=== PATIENT | male | born 1975 | race Hispanic/Latino ===

== ENCOUNTER 2017-06-25 09:21 | Emergency (ER) | payer SELFPAY ==
[2017-06-25] MEDS ORDERED: Ketorolac Tromethamine 30 MG/ML VIAL ONE (10:06)
--- NOTE | 2017-06-25 10:15 | RAD ---
RIGHT RIBS THREE VIEWS: History: 42-year-old male with right rib pain and right flank pain. Difficulty urinating. FINDINGS: No evidence for acute rib fracture. No pneumothorax or pleural effusion. There is a stable focal area of faint increased density involving the anterior right fourth rib, stable. IMPRESSION: No rib fracture, pleural effusion, pneumothorax or other acute process. POS: [facility]
== END 2017-06-25 10:38 | disposition home or self-care (01) ==
LOC: ERS 09:21
DX: R07.81 Pleurodynia (principal); E11.9 Type 2 diabetes mellitus without complications; Z79.84 Long term (current) use of oral hypoglycemic drugs
CPT/HCPCS: 96372; J1885

== ENCOUNTER 2017-06-27 08:19 | Emergency (ER) | payer SELFPAY ==
[2017-06-27 08:45] LABS: Bilirubin Negative (Negative); Blood, Urine Negative (Negative); Glucose, Urine (Dipstick) >=1000 mg/dL (Negative); Ketone, Urine Negative (Negative); Nitrite Negative (Negative); Protein, Urine (Dipstick) Trace mg/dL (Neg-Trace)
[2017-06-27] MEDS ORDERED: Cyclobenzaprine 10 MG TAB ONE (09:14)
[2017-06-27] MEDS ORDERED: Ketorolac Tromethamine 60 MG/2 ML VIAL ONE (09:14)
== END 2017-06-27 10:52 | disposition home or self-care (01) ==
LOC: ERS 08:19
DX: S29.011A Strain of muscle and tendon of front wall of thorax, initial encounter (principal); E11.9 Type 2 diabetes mellitus without complications; Z79.84 Long term (current) use of oral hypoglycemic drugs; Z79.899 Other long term (current) drug therapy; X50.3XXA Overexertion from repetitive movements, initial encounter; Y92.69 Other specified industrial and construction area as the place of occurrence of the external cause; Y99.0 Civilian activity done for income or pay
CPT/HCPCS: 36416; 81003; 87086; 96372; J1885

== ENCOUNTER 2017-06-29 14:20 | Emergency (ER) | payer SELFPAY ==
[~2017-06-29 14:20] MED LIST: ISOVUE-370 76%-LOCM 1 ML ONE
[2017-06-29 15:39] LABS: #Eosinphils 0.1 thou/uL (0.0-0.7); #Lymphocytes 1.5 thou/uL (1.20-3.40); #Monocytes 0.3 thou/uL (0.11-0.59); #Neutrophils 4.2 thou/uL (1.40-6.50); %Basophils 0.6 % (0.0-1.0); %Eosinophils 2.3 % (0.0-10.0); %Lymphocytes 23.7 % (21.0-51.0); %Monocytes 5.3 % (0.0-10.0); Hematocrit 48.7 % (42.0-52.0); Mean Platelet Volume 9.5 fL (7.4-10.4); Red Blood Cell (RBC) Count 5.24 mill/uL (4.70-6.10); White Blood Cell (WBC) Count 6.2 thou/uL (4.8-10.8)
[2017-06-29 16:02] LABS: ALT (SGPT) 33 U/L (8-55); AST (SGOT) 17 U/L (5-34); Alkaline Phosphatase 81 U/L (40-150); Anion Gap 12 mmol/L (10-20); BUN (Urea Nitrogen) 15 mg/dL (8.9-20.6); Bilirubin, Total 0.8 mg/dL (0.2-1.2); Calc. Creatinine Clearance 0 mL/min (70-130); Calcium 9.6 mg/dL (7.8-10.44); Carbon Dioxide 27 mmol/L (22-29); Chloride 101 mmol/L (98-107); Estimated GFR-MDRD Greater than 90; Globulin 3.7 g/dL (2.4-3.5); Lipase 16 U/L (8-78)
[2017-06-29 16:06] LABS: Bilirubin Negative (Negative); Blood, Urine Negative (Negative); Glucose, Urine (Dipstick) >=1000 mg/dL (Negative); Ketone, Urine Negative (Negative); Nitrite Negative (Negative); Protein, Urine (Dipstick) Negative (Neg-Trace)
[2017-06-29] MEDS ORDERED: diphenhydrAMINE 50 MG/ML VIAL ONE (17:31)
[2017-06-29] MEDS ORDERED: Metoclopramide HCl 10 MG/2 ML VIAL ONE (17:31)
[2017-06-29 17:32] LABS: Lactic Acid - Sepsis 3.1 mmol/L (0.5-2.2)
[2017-06-29 17:39] LABS: Troponin I Less than 0.010 ng/mL (< 0.028)
--- NOTE | 2017-06-29 17:53 | RAD ---
PORTABLE UPRIGHT FRONTAL CHEST RADIOGRAPH 06/29/17 COMPARISON: 02/06/17. HISTORY: Right sided flank pain. FINDINGS: No pneumothorax, pleural fluid, focal consolidation, or alveolar edema. Heart and mediastinal contour s are stable. IMPRESSION: No acute findings. POS: [facility]
--- NOTE | 2017-06-29 18:28 | CT ---
CTA CHEST WITH 3D VOLUME RENDERING 06/29/17 INDICATION: Recent onset pain. FINDINGS: There is no evidence of a significant filling defect of the pulmonary arterial system. Mild patchy op acities of the lungs are present including areas of focal ground glass opacity. This could relate to areas of atelectasis although the possibility of an atypical infection is not excluded. No effusion o r pneumothorax. The thoracic aorta is nonaneurysmal. No pathologic thoracic adenopathy. There is osse ous degenerative change. IMPRESSION: 1. No evidence of pulmonary embolus. 2. Scattered ground glass opacity, some of which are nodular in morphology and may therefore relate t o atypical infection. Given the component of nodularity a followup CT thorax is warranted to exclude the possibility of underlying neoplastic nodularity. Code T
--- NOTE | 2017-06-29 18:30 | CT ---
ABDOMEN AND PELVIS CT WITH CONTRAST 06/29/17 INDICATION; Upper abdominal pain. COMPARISON: 12/14/15. FINDINGS: Evidence of prior cholecystectomy. There is no acute pathology of the solid abdominal organs. The bow el is not reliably assessed without the presence of enteric contrast. There is no free air or ascites of significance. The abdominal aorta is normal in caliber. No abdominal adenopathy. There is scatter ed degenerative change of osseous structures. IMPRESSION: No definitive acute intra-abdominal process. Additional details are described above. POS: [facility]
--- NOTE | 2017-07-02 12:59 | EKG ---
Test Reason : Blood Pressure : / mmHG Vent. Rate : 081 BPM Atrial Rate : 081 BPM P-R Int : 130 ms QRS Dur : 078 ms QT Int : 348 ms P-R-T Axes : 009 -18 000 degrees QTc Int : 404 ms Normal sinus rhythm Minimal voltage criteria for LVH, may be normal variant Borderline ECG Confirmed by RANJITH PEREZ ([id number]), associate editor PAUL CHOUDHARY ([id number]) on 07/02/2017 12:58:40 PM Referred By: Confirmed By:RANJITH PEREZ
== END 2017-06-29 21:00 | disposition home or self-care (01) ==
LOC: ERS 14:20
DX: J18.9 Pneumonia, unspecified organism (principal); E11.9 Type 2 diabetes mellitus without complications
CPT/HCPCS: 36415; 71010; 71275; 74177; 80053; 81003; 82553; 83605; 83690; 83735; 84484; 85025; 85379; 87086; 93005; 96361; 96374; 96375; J1200; J2765

== ENCOUNTER 2017-12-24 18:07 | Emergency (ER) | payer SELFPAY | END 2017-12-24 18:56 | disposition home or self-care (01) | LOC: ERS 18:07 | DX: H66.92 Otitis media, unspecified, left ear (principal); E11.9 Type 2 diabetes mellitus without complications; Z79.84 Long term (current) use of oral hypoglycemic drugs | CPT/HCPCS: 99282 ==

== ENCOUNTER 2018-02-17 18:20 | Emergency (ER) | payer SELFPAY | END 2018-02-17 19:08 | disposition home or self-care (01) | LOC: SCSER 18:20 | DX: S50.862A Insect bite (nonvenomous) of left forearm, initial encounter (principal); E11.9 Type 2 diabetes mellitus without complications; Z79.84 Long term (current) use of oral hypoglycemic drugs; W57.XXXA Bitten or stung by nonvenomous insect and other nonvenomous arthropods, initial encounter | CPT/HCPCS: 99282 ==

== ENCOUNTER 2018-02-23 17:13 | Inpatient (IN) | payer SELFPAY ==
[2018-02-23] MEDS ORDERED: Sodium Chloride 0.9% 100 ML ONE (18:07)
[2018-02-23] MEDS ORDERED: Cefepime 2 GM VIAL ONE (18:07)
[2018-02-23 18:31] LABS: ALT (SGPT) 34 U/L (8-55); AST (SGOT) 20 U/L (5-34); Albumin 4.3 g/dL (3.5-5.0); Alkaline Phosphatase 103 U/L (40-150); Anion Gap 16 mmol/L (10-20); BUN (Urea Nitrogen) 11 mg/dL (8.9-20.6); Bilirubin, Total 0.6 mg/dL (0.2-1.2); Calc. Creatinine Clearance 0 mL/min (70-130); Carbon Dioxide 19 mmol/L (22-29); Chloride 104 mmol/L (98-107); Estimated GFR-MDRD Greater than 90; Globulin 3.3 g/dL (2.4-3.5); Glucose 404 mg/dL (70-105); Potassium 3.9 mmol/L (3.5-5.1); Protein, Total 7.6 g/dL (6.0-8.3); Sodium 135 mmol/L (136-145)
[2018-02-23 18:33] LABS: #Eosinphils 0.1 thou/uL (0.0-0.7); #Lymphocytes 1.8 thou/uL (1.20-3.40); #Monocytes 0.5 thou/uL (0.11-0.59); #Neutrophils 4.9 thou/uL (1.40-6.50); %Basophils 0.4 % (0.0-1.0); %Monocytes 6.9 % (0.0-10.0); %Neutrophils 66.6 % (42.0-75.0); Hemoglobin 14.2 g/dL (14.0-18.0); Mean Corpuscular HGB CONC 34.8 g/dL (32.0-36.0); Mean Corpuscular Volume 92.2 fL (78.0-98.0); Mean Platelet Volume 9.7 fL (7.4-10.4); Platelet Count 143 thou/uL (130-400); RBC Distribution Width 11.1 % (11.5-14.5); Red Blood Cell (RBC) Count 4.42 mill/uL (4.70-6.10); White Blood Cell (WBC) Count 7.3 thou/uL (4.8-10.8)
[2018-02-23] MEDS ORDERED: Ondansetron HCl/PF 4 MG/2 ML Vial ONE (18:43)
--- NOTE | 2018-02-23 19:54 | CT ---
CT LEFT UPPER EXTREMITY WITH CONTRAST: 02/23/2018 HISTORY: A 42-year-old male with left upper extremity cellulitis, status post I&D of open, draining abscess of the forearm. TECHNIQUE: IV contrast injection of Isovue. Single phase scan performed through the entire left upper extremity, from the shoulder to the digits. Coronal and sagittal reconstructions. FINDINGS: At the ulnar side of the dorsum of the proximal-mid forearm, there is a cutaneous and subcutaneous fo sandip, approximately 2.5 x 2 x 1 cm mass, which has moderately thick, moderately high density (probably enhancing) shah, and is filled with numerous tiny pockets of gas interspersed with intermediate den sity material. This presumably represents packing material within the cutaneous and subcutaneous abs cess cavity It indents the dorsal surface of the extensor muscles of the forearm. There is edema throughout the superficial soft tissues of the forearm, wrist, and elbow, extending a short distance proximally into the distal arm. There is no periosteal elevation or permeative lesion involving any of the bones. IMPRESSION: 1. Cutaneous and subcutaneous mass at the dorsum of the forearm with the appearance described above. This presumably represents packing material within the abscess cavity. 2. Edema throughout the wrist, entire forearm, and distal arm proximal to the elbow. 3. No osseous abnormality. POS: [facility]
[2018-02-23] MEDS ORDERED: Dextrose 5% in Water 1,000 ML IV PRN (21:28)
[2018-02-23] MEDS ORDERED: Dextrose 50% Abboject 50 ML SYRINGE SLOW IVP PRN (21:28)
[2018-02-23 22:18] LABS: Lactic Acid 1.1 mmol/L (0.5-2.2)
[2018-02-24] MEDS: Acetaminophen 325 MG TAB PO PRN ×3 (00:10→17:04)
--- NOTE | 2018-02-24 02:42 | HP ---
CODE STATUS: FULL CODE. CHIEF COMPLAINT: Left-forearm abscess. HISTORY OF PRESENT ILLNESS: This is a 42-year-old male patient with past medical history of diabetes came to the hospital after having worsening left forearm cellulitis with wound and abscess, patient had tried Bactrim and some other p.o. antibiotics for the past week that has not been working, the sy mptoms are severe. Patient has associated pain, redness, decreased range of motion due to pain and s welling. Symptoms are severe. REVIEW OF SYSTEMS: Constitutional: Patient reported fever, chills, generalized weakness. Respirato ry: No cough, sputum production, shortness of breath. Cardiovascular: No chest pain, palpitations, shortness of breath. Gastrointestinal: No nausea, no vomiting, diarrhea, or abdominal pain. UTILITY TECH: No dizziness, headache, or feeling lightheaded. Genitourinary: No burning on urination. Extremiti es: Left upper arm swelling, redness, open wound with drainage that is purulent. All other systems were reviewed and negative except for finding mentioned above. PAST MEDICAL HISTORY: Patient has a history of diabetes. PAST SURGICAL HISTORY: Cholecystectomy, cyst removed from testicle. PSYCHIATRIC HISTORY: No previous psych history. SOCIAL HISTORY: No smoking history. Patient drinks socially rarely. ALLERGIES: No allergies to PENICILLIN. REPORTED MEDICATIONS: Metformin and Keflex. FAMILY HISTORY: Reviewed and noncontributory. PHYSICAL EXAMINATION: VITAL SIGNS: Heart rate 89, respiratory rate was 17, temperature 98.5, pain 7/10, oxygen saturation 94 on room air. GENERAL APPEARANCE: Patient is alert, oriented in not in any acute distress. HEENT: Eye normal conjunctivae. Moist oral mucosa. Anicteric. NECK: No JVD. RESPIRATORY: Bilateral air entry. No rales, no wheezing. Symmetric expansion. CARDIOVASCULAR: Normal rate, regular rhythm. No murmurs, no gallop. No edema. ABDOMEN: Soft. Normal bowel sounds. MUSCULOSKELETAL: Baseline range of motion and strength except for the left forearm. Patient has swe lling, redness, open wound with drainage, decreased range of motion. SKIN: Warm and intact. No pallor, no rash except for the findings mentioned above. NEURO: Baseline sensory. No evidence of any new focal weakness. Baseline speech. Cranial nerve se ems to be intact. PSYCHIATRIC: Patient is in good mood. No anxiety, oriented, normal judgment. EXTREMITIES: Upper extremity, CT was done. The patient has cutaneous and subcutaneous mass at the d orsum of the forearm with appearance as described above, likely packing material within the abscess c avity. Edema throughout the wrist and entire forearm, and distal and proximal to the elbow. No osse ous abnormalities. LABORATORY DATA: Reviewed. White count 7.3, hemoglobin 14.2, platelet count 143. Sodium 135, potas sium 3.9, chloride 104, carbon dioxide 19, anion gap 16, BUN 11, creatinine 0.8. GFR is normal. Glu cose 404 . Lactic acid 2.4 again down to 1.1. LFTs are normal. ASSESSMENT AND PLAN: The patient was placed in the hospital with following medical problems. 1. Left upper forearm abscess and cellulitis, we will treat the patient with broad-spectrum antibiot ics. Patient has allergic to PENICILLIN. We will follow cultures accordingly. There is no bony inv olvement as per x-ray. If not improving, might consider calling Orthopedics will assist with this ca se. 2. Uncontrolled diabetes. We will place the patient on sliding scale for edema control, no current medication. 3. Mild lactic acidosis. Lactic acid 2.4 again down to 1.1. This is likely secondary to underlying infection. 4. Hyponatremia. Sodium 135. This is minimal, no need for any further intervention. 5. Deep venous thrombosis prophylaxis.
[2018-02-24] MEDS: traMADol HCl 50 MG TAB PO PRN ×2 (02:56→08:07)
[2018-02-24 04:42] LABS: #Basophils 0.1 thou/uL (0.0-0.2); #Eosinphils 0.2 thou/uL (0.0-0.7); #Lymphocytes 1.6 thou/uL (1.20-3.40); #Monocytes 0.5 thou/uL (0.11-0.59); %Basophils 0.8 % (0.0-1.0); %Eosinophils 2.7 % (0.0-10.0); %Lymphocytes 21.5 % (21.0-51.0); %Monocytes 7.1 % (0.0-10.0); Hemoglobin 14.2 g/dL (14.0-18.0); Mean Corpuscular HGB CONC 36.2 g/dL (32.0-36.0); Mean Corpuscular Hemoglobin 33.4 pg (27.0-31.0); Mean Corpuscular Volume 92.3 fL (78.0-98.0); Mean Platelet Volume 9.5 fL (7.4-10.4); Platelet Count 139 thou/uL (130-400); RBC Distribution Width 11.1 % (11.5-14.5); Red Blood Cell (RBC) Count 4.25 mill/uL (4.70-6.10); White Blood Cell (WBC) Count 7.3 thou/uL (4.8-10.8)
[2018-02-24 05:06] LABS: Anion Gap 13 mmol/L (10-20); BUN (Urea Nitrogen) 10 mg/dL (8.9-20.6); Calc. Creatinine Clearance 136 mL/min (70-130); Calcium 8.8 mg/dL (7.8-10.44); Carbon Dioxide 22 mmol/L (22-29); Chloride 105 mmol/L (98-107); Estimated GFR-MDRD Greater than 90; Glucose 258 mg/dL (70-105); Potassium 3.8 mmol/L (3.5-5.1); Sodium 136 mmol/L (136-145)
[2018-02-24] MEDS: Cefepime 1 GM in Sodium Chloride 0.9% 100 ML IVPB SCH ×2 (06:17→17:13)
[2018-02-24] MEDS: Insulin Regular 300 UNITS/3 ML VIAL SC PRN (06:17)
[2018-02-24] MEDS ORDERED: Senokot 8.6 MG TAB PO PRN (07:44)
[2018-02-24] MEDS ORDERED: Eucerin (Mineral Oil/Petrolatum,White) 30 gm Jar TOP PRN (07:44)
[2018-02-24] MEDS ORDERED: Loperamide HCl 2 MG CAP PO PRN (07:44)
[2018-02-24] MEDS ORDERED: Loratadine 10 MG TAB PO PRN (07:44)
[2018-02-24] MEDS ORDERED: Mag-Al 1200 mg/1200 mg/30 ML UDCUP PO PRN (07:44)
[2018-02-24] MEDS ORDERED: Diabetic Tussin 200 MG/10 ML UDCUP PO PRN (07:44)
[2018-02-24] MEDS ORDERED: Ondansetron ODT 4 MG TAB PO PRN (07:44)
[2018-02-24] MEDS ORDERED: Sodium Chloride 0.65% Nasal 44 ML BOT EA NARE PRN (07:44)
[2018-02-24] MEDS ORDERED: Chloraseptic Spray 180 ml Bottle PO PRN (07:44)
[2018-02-24] MEDS ORDERED: hydrALAZINE 20 MG/ML VIAL SLOW IVP PRN (07:44)
[2018-02-24] MEDS ORDERED: Artificial Tear Sol 15 ML BOT EA EYE PRN (07:44)
[2018-02-24] MEDS ORDERED: Milk Of Magnesia 30 ML UDCUP PO PRN (07:44)
[2018-02-24] MEDS ORDERED: Zolpidem Tartrate 5 MG TAB PO PRN (07:44)
[2018-02-24] MEDS ORDERED: Famotidine 20 MG TAB PO PRN (07:44)
[2018-02-24] MEDS: Vancomycin HCl 1 GM in Premix Bag 1 BAG IVPB SCH ×2 (08:03→19:39)
[2018-02-24] MEDS: Enoxaparin Sodium 40 MG/0.4 ML SYRINGE SC SCH (08:09)
[2018-02-24] MEDS: metFORMIN 500 MG TAB PO SCH ×2 (08:52→19:43)
[2018-02-24] MEDS: HYDROcodone/Acetaminophen 5/325 mg Tablet PO PRN (08:53)
[2018-02-24] MEDS: Saccharomyces boulardii 250 MG CAP PO SCH (08:55)
[2018-02-24] MEDS: Morphine 4 MG/ML VIAL SLOW IVP PRN ×2 (11:30→15:17)
--- NOTE | 2018-02-24 12:53 | PDOC.PN ---
- Subjective Encounter Start Date: 02/24/18 Encounter Start Time: 10:00 -: old records requested/rev Patient seen and examined. No new complaints. No overnight events pt has pain in left UE and swelling, no fever - Objective Resuscitation Status: Resuscitation Status FULL:Full Resuscitation MAR Reviewed: Yes Vital Signs & Weight: Vital Signs (12 hours) Temp Pulse Resp BP Pulse Ox 02/24/18 11:39 97.9 F 75 18 121/82 97 02/24/18 08:00 97.6 F 75 18 02/24/18 07:57 97.6 F 75 18 131/85 96 02/24/18 04:04 98.0 F 75 18 121/81 97 Result Diagrams: 02/24/18 04:10 02/24/18 04:10 Additional Labs: Accuchecks 02/24/18 02/23/18 04:08 22:14 POC Glucose 257 H 268 H Radiology Reviewed by me: Yes Phys Exam - Physical Examination Constitutional: NAD HEENT: PERRLA, moist MMs, sclera anicteric Neck: no JVD, supple Respiratory: no wheezing, no rales, no rhonchi Cardiovascular: RRR, no significant murmur, no rub Gastrointestinal: soft, non-tender, no distention, positive bowel sounds Musculoskeletal: no edema, pulses present Neurological: non-focal, normal sensation, moves all 4 limbs Psychiatric: normal affect, A&O x 3 Skin: no rash, normal turgor Dx/Plan (1) Cellulitis of left upper extremity Code(s): L03.114 - CELLULITIS OF LEFT UPPER LIMB Status: Acute (2) Failure of outpatient treatment Code(s): Z78.9 - OTHER SPECIFIED HEALTH STATUS Status: Acute (3) Hyperglycemia due to type 2 diabetes mellitus Code(s): E11.65 - TYPE 2 DIABETES MELLITUS WITH HYPERGLYCEMIA Status: Acute (4) Lactic acidosis Code(s): E87.2 - ACIDOSIS Status: Acute (5) Sepsis Code(s): A41.9 - SEPSIS, UNSPECIFIED ORGANISM Status: Acute (6) Obesity (BMI 30.0-34.9) Code(s): E66.9 - OBESITY, UNSPECIFIED Status: Chronic - Plan cont current plan of care, plan discussed w/ family, continue antibiotics * continue cefepime and vancomycin for now * follow on culture to determine final antibiotics, will change tomorrow * wound care * add morphin for pain control * repeat labs and check HbA1c tomorrow * discussed with bedside * medication reviewed as below * symptomatic treatment. Review of Systems - Review of Systems Constitutional: negative: fever, chills, sweats, weakness, malaise, other Eyes: negative: Pain, Vision Change, Conjunctivae Inflammation, Eyelid Inflammation, Redness, Other ENT: negative: Ear Pain, Ear Discharge, Nose Pain, Nose Discharge, Nose Congestion, Mouth Pain, Mouth Swelling, Throat Pain, Throat Swelling, Other Respiratory: negative: Cough, Dry, Shortness of Breath, Hemoptysis, SOB with Excertion, Pleuritic Pain, Sputum, Wheezing Cardiovascular: negative: chest pain, palpitations, orthopnea, paroxysmal nocturnal dyspnea, edema, light headedness, other Gastrointestinal: negative: Nausea, Vomiting, Abdominal Pain, Diarrhea, Constipation, Melena, Hematochezia, Other Genitourinary: negative: Dysuria, Frequency, Incontinence, Hematuria, Retention , Other Musculoskeletal: Arm Pain. negative: Neck Pain, Shoulder Pain, Back Pain, Hand Pain, Leg Pain, Foot Pain, Other - Medications/Allergies Allergies/Adverse Reactions: Allergies Allergy/AdvReac Type Severity Reaction Status Date / Time Penicillins Allergy Verified 12/14/15 23:30 Medications: Current Medications Acetaminophen (Tylenol) 650 mg PO Q4H PRN PRN Reason: Headache/Fever or Pain Last Admin: 02/24/18 06:24 Dose: 650 mg Hydrocodone Bitart/Acetaminophen ([place] 5/325) 1 tab PO Q4H PRN PRN Reason: Moderate Pain (4-6) Last Admin: 02/24/18 08:53 Dose: 1 tab Al Hydroxide/Mg Hydroxide (Maalox) 15 ml PO Q4H PRN PRN Reason: Heartburn or Indigestion Artificial Tears (Tears Renewed 15ml Bottle) 0 drop EA EYE PRN PRN PRN Reason: Dry Eyes Dextrose/Water (Dextrose 50%) 25 gm SLOW IVP PRN PRN PRN Reason: Hypoglycemia Enoxaparin Sodium (Lovenox) 40 mg SC 0900 IRVIN Last Admin: 02/24/18 08:09 Dose: 40 mg Famotidine (Pepcid) 20 mg PO BIDPRN PRN PRN Reason: Heartburn or Indigestion Glucagon (Glucagon) 1 mg IM PRN PRN PRN Reason: Hypoglycemia Guaifenesin (Robitussin Sf) 200 mg PO Q4H PRN PRN Reason: Cough Hydralazine HCl (Apresoline) 10 mg SLOW IVP Q4H PRN PRN Reason: Systolic BP > 180 Dextrose/Water (D5w) 1,000 mls @ 0 mls/hr IV .Q0M PRN; As Directed PRN Reason: Hypoglycemia Cefepime HCl 1 gm/ Sodium (Chloride) 100 mls @ 200 mls/hr IVPB 0600,1800 [facility] Last Admin: 02/24/18 06:17 Dose: 100 mls Vancomycin HCl 1 gm/ Device 200 mls @ 200 mls/hr IVPB 0800,2000 [facility] Last Admin: 02/24/18 08:03 Dose: 200 mls Insulin Human Regular (Humulin R) 0 units SC .MILD SLIDING SCALE PRN PRN Reason: Mild Correctional Scale Last Admin: 02/24/18 06:17 Dose: 4 unit Loperamide HCl (Imodium) 2 mg PO PRN PRN PRN Reason: Diarrhea/Loose Stools Loratadine (Claritin) 10 mg PO DAILYPRN PRN PRN Reason: Sinus Symptoms Magnesium Hydroxide (Milk Of Magnesium) 30 ml PO DAILYPRN PRN PRN Reason: Constipation Metformin HCl (Glucophage) 1,000 mg PO BID [facility] Last Admin: 02/24/18 08:52 Dose: 1,000 mg Mineral Oil/White Petrolatum (Eucerin Cream) 0 gm TOP BIDPRN PRN PRN Reason: Dry Skin Miscellaneous Medication (Pharmacy To Dose) 1 each IVPB PRN PRN PRN Reason: Pharmacy to dose Morphine Sulfate (Morphine) 4 mg SLOW IVP Q4H PRN PRN Reason: Pain Last Admin: 02/24/18 11:30 Dose: 4 mg Ondansetron HCl (Zofran) 4 mg IVP Q6H PRN PRN Reason: Nausea/Vomiting Ondansetron HCl (Zofran Odt) 4 mg PO Q6H PRN PRN Reason: Nausea/Vomiting Phenol (Chloraseptic [place] 180 Ml Bot) 0 ml PO PRN PRN PRN Reason: Sore Throat Saccharomyces Boulardii (Florastor) 250 mg PO DAILY [facility] Last Admin: 02/24/18 08:55 Dose: 250 mg Senna (Senokot) 2 tab PO HSPRN PRN PRN Reason: Constipation Sodium Chloride ([place] Nasal [place] 0.65%) 0 ml EA NARE QIDPRN PRN PRN Reason: Nasal Congestion Tramadol HCl (Ultram) 50 mg PO Q6H PRN PRN Reason: Pain 4-6 Last Admin: 02/24/18 08:07 Dose: 50 mg Zolpidem Tartrate (Ambien) 5 mg PO HSPRN PRN PRN Reason: Insomnia
[2018-02-24 15:00] VITALS: BMI 31.4
[2018-02-24] MEDS: Ondansetron HCl/PF 4 MG/2 ML Vial IVP PRN ×3 (15:17→19:41)
[2018-02-25] MEDS: Morphine 4 MG/ML VIAL SLOW IVP PRN ×2 (01:37→10:26)
[2018-02-25 04:51] LABS: #Basophils 0.1 thou/uL (0.0-0.2); #Eosinphils 0.2 thou/uL (0.0-0.7); #Monocytes 0.4 thou/uL (0.11-0.59); #Neutrophils 5.5 thou/uL (1.40-6.50); %Basophils 0.8 % (0.0-1.0); %Eosinophils 2.7 % (0.0-10.0); %Lymphocytes 24.5 % (21.0-51.0); %Monocytes 5.3 % (0.0-10.0); %Neutrophils 66.8 % (42.0-75.0); Hemoglobin 15.3 g/dL (14.0-18.0); Mean Corpuscular HGB CONC 36.1 g/dL (32.0-36.0); Mean Corpuscular Hemoglobin 33.1 pg (27.0-31.0); Mean Corpuscular Volume 91.6 fL (78.0-98.0); Mean Platelet Volume 9.1 fL (7.4-10.4); Platelet Count 168 thou/uL (130-400); RBC Distribution Width 11.1 % (11.5-14.5); Red Blood Cell (RBC) Count 4.63 mill/uL (4.70-6.10); White Blood Cell (WBC) Count 8.2 thou/uL (4.8-10.8)
[2018-02-25 04:59] LABS: Hemoglobin A1c 7.9 % (4.0-6.0)
[2018-02-25] MEDS: Cefepime 1 GM in Sodium Chloride 0.9% 100 ML IVPB SCH (05:42)
[2018-02-25] MEDS: HYDROcodone/Acetaminophen 5/325 mg Tablet PO PRN ×3 (05:42→20:11)
[2018-02-25] MEDS: Insulin Regular 300 UNITS/3 ML VIAL SC PRN (05:50)
[2018-02-25 07:35] LABS: Vancomycin, Trough 5.2 ug/mL
[2018-02-25] MEDS: metFORMIN 500 MG TAB PO SCH ×2 (08:13→20:12)
[2018-02-25] MEDS: Saccharomyces boulardii 250 MG CAP PO SCH (08:14)
[2018-02-25] MEDS: glyBURIDE 2.5 MG TAB PO SCH (08:14)
[2018-02-25] MEDS: Enoxaparin Sodium 40 MG/0.4 ML SYRINGE SC SCH (08:15)
[2018-02-25] MEDS: Vancomycin HCl 1 GM in Premix Bag 1 BAG IVPB SCH ×3 (09:11→15:05)
--- NOTE | 2018-02-25 14:11 | PDOC.PN ---
- Subjective Encounter Start Date: 02/25/18 Encounter Start Time: 08:00 Patient seen and examined. No new complaints. No overnight events - Objective Resuscitation Status: Resuscitation Status FULL:Full Resuscitation MAR Reviewed: Yes Vital Signs & Weight: Vital Signs (12 hours) Temp Pulse Resp BP Pulse Ox 02/25/18 08:00 97.7 F 75 16 110/74 95 02/25/18 07:02 98.1 F 74 20 02/25/18 04:37 98.1 F 74 20 106/71 97 Weight Admit Weight 161 lb Weight 161 lb I&O: 02/24/18 02/25/18 02/26/18 06:59 06:59 06:59 Intake Total 2900 Balance 2900 Result Diagrams: 02/25/18 04:28 02/24/18 04:10 Additional Labs: Accuchecks 02/25/18 02/25/18 02/24/18 11:16 04:38 19:25 POC Glucose 186 H 209 H 237 H 02/24/18 02/24/18 15:41 10:58 POC Glucose 192 H 251 H Phys Exam - Physical Examination Constitutional: NAD HEENT: PERRLA, moist MMs, sclera anicteric Neck: no JVD, supple Respiratory: no wheezing, no rales, no rhonchi Cardiovascular: RRR, no significant murmur, no rub Gastrointestinal: soft, non-tender, no distention, positive bowel sounds Musculoskeletal: no edema, pulses present left UE swelling reduced, dressing+ Neurological: non-focal, normal sensation, moves all 4 limbs Psychiatric: normal affect, A&O x 3 Skin: no rash, normal turgor Dx/Plan (1) Cellulitis of left upper extremity Code(s): L03.114 - CELLULITIS OF LEFT UPPER LIMB Status: Acute (2) Failure of outpatient treatment Code(s): Z78.9 - OTHER SPECIFIED HEALTH STATUS Status: Acute (3) Hyperglycemia due to type 2 diabetes mellitus Code(s): E11.65 - TYPE 2 DIABETES MELLITUS WITH HYPERGLYCEMIA Status: Acute (4) Lactic acidosis Code(s): E87.2 - ACIDOSIS Status: Acute (5) Sepsis Code(s): A41.9 - SEPSIS, UNSPECIFIED ORGANISM Status: Acute (6) Obesity (BMI 30.0-34.9) Code(s): E66.9 - OBESITY, UNSPECIFIED Status: Chronic - Plan cont current plan of care, plan discussed w/ family, continue antibiotics * continue vancomycin * dc zosyn * medication reviewed as below * symptomatic treatment * expecting discharge tomorrow. * family learning wound care at home Review of Systems - Review of Systems Eyes: negative: Pain, Vision Change, Conjunctivae Inflammation, Eyelid Inflammation, Redness, Other ENT: negative: Ear Pain, Ear Discharge, Nose Pain, Nose Discharge, Nose Congestion, Mouth Pain, Mouth Swelling, Throat Pain, Throat Swelling, Other Respiratory: negative: Cough, Dry, Shortness of Breath, Hemoptysis, SOB with Excertion, Pleuritic Pain, Sputum, Wheezing Cardiovascular: negative: chest pain, palpitations, orthopnea, paroxysmal nocturnal dyspnea, edema, light headedness, other Gastrointestinal: negative: Nausea, Vomiting, Abdominal Pain, Diarrhea, Constipation, Melena, Hematochezia, Other Genitourinary: negative: Dysuria, Frequency, Incontinence, Hematuria, Retention , Other Musculoskeletal: Arm Pain. negative: Neck Pain, Shoulder Pain, Back Pain, Hand Pain, Leg Pain, Foot Pain, Other Skin: negative: Rash, Lesions, [place], Bruising, Other - Medications/Allergies Allergies/Adverse Reactions: Allergies Allergy/AdvReac Type Severity Reaction Status Date / Time Penicillins Allergy Verified 12/14/15 23:30 Medications: Current Medications Acetaminophen (Tylenol) 650 mg PO Q4H PRN PRN Reason: Headache/Fever or Pain Last Admin: 02/24/18 17:04 Dose: 650 mg Hydrocodone Bitart/Acetaminophen ([place] 5/325) 1 tab PO Q4H PRN PRN Reason: Moderate Pain (4-6) Last Admin: 02/25/18 05:42 Dose: 1 tab Al Hydroxide/Mg Hydroxide (Maalox) 15 ml PO Q4H PRN PRN Reason: Heartburn or Indigestion Artificial Tears (Tears Renewed 15ml Bottle) 0 drop EA EYE PRN PRN PRN Reason: Dry Eyes Dextrose/Water (Dextrose 50%) 25 gm SLOW IVP PRN PRN PRN Reason: Hypoglycemia Enoxaparin Sodium (Lovenox) 40 mg SC 0900 IRVIN Last Admin: 02/25/18 08:15 Dose: 40 mg Famotidine (Pepcid) 20 mg PO BIDPRN PRN PRN Reason: Heartburn or Indigestion Glucagon (Glucagon) 1 mg IM PRN PRN PRN Reason: Hypoglycemia Glyburide (Micronase) 2.5 mg PO QAM[facility] Last Admin: 02/25/18 08:14 Dose: 2.5 mg Guaifenesin (Robitussin Sf) 200 mg PO Q4H PRN PRN Reason: Cough Hydralazine HCl (Apresoline) 10 mg SLOW IVP Q4H PRN PRN Reason: Systolic BP > 180 Dextrose/Water (D5w) 1,000 mls @ 0 mls/hr IV .Q0M PRN; As Directed PRN Reason: Hypoglycemia Vancomycin HCl 1 gm/ Device 200 mls @ 200 mls/hr IVPB 0100,0900,1700 [facility] Last Admin: 02/25/18 09:41 Dose: 200 mls Insulin Human Regular (Humulin R) 0 units SC .MILD SLIDING SCALE PRN PRN Reason: Mild Correctional Scale Last Admin: 02/25/18 05:50 Dose: 3 unit Loperamide HCl (Imodium) 2 mg PO PRN PRN PRN Reason: Diarrhea/Loose Stools Loratadine (Claritin) 10 mg PO DAILYPRN PRN PRN Reason: Sinus Symptoms Magnesium Hydroxide (Milk Of Magnesium) 30 ml PO DAILYPRN PRN PRN Reason: Constipation Metformin HCl (Glucophage) 1,000 mg PO BID [facility] Last Admin: 02/25/18 08:13 Dose: 1,000 mg Mineral Oil/White Petrolatum (Eucerin Cream) 0 gm TOP BIDPRN PRN PRN Reason: Dry Skin Miscellaneous Medication (Pharmacy To Dose) 1 each IVPB PRN PRN PRN Reason: Pharmacy to dose Morphine Sulfate (Morphine) 4 mg SLOW IVP Q4H PRN PRN Reason: Pain Last Admin: 02/25/18 10:26 Dose: 4 mg Ondansetron HCl (Zofran) 4 mg IVP Q6H PRN PRN Reason: Nausea/Vomiting Last Admin: 02/24/18 19:41 Dose: 4 mg Ondansetron HCl (Zofran Odt) 4 mg PO Q6H PRN PRN Reason: Nausea/Vomiting Phenol (Chloraseptic [place] 180 Ml Bot) 0 ml PO PRN PRN PRN Reason: Sore Throat Saccharomyces Boulardii (Florastor) 250 mg PO DAILY [facility] Last Admin: 02/25/18 08:14 Dose: 250 mg Senna (Senokot) 2 tab PO HSPRN PRN PRN Reason: Constipation Sodium Chloride ([place] Nasal [place] 0.65%) 0 ml EA NARE QIDPRN PRN PRN Reason: Nasal Congestion Sodium Chloride (Flush - Normal Saline) 10 ml IVF Q12HR [facility] Last Admin: 02/25/18 08:14 Dose: 10 ml Sodium Chloride (Flush - Normal Saline) 10 ml IVF PRN PRN PRN Reason: Saline Flush Tramadol HCl (Ultram) 50 mg PO Q6H PRN PRN Reason: Pain 4-6 Last Admin: 02/24/18 08:07 Dose: 50 mg Zolpidem Tartrate (Ambien) 5 mg PO HSPRN PRN PRN Reason: Insomnia
[2018-02-26] MEDS: Vancomycin HCl 1 GM in Premix Bag 1 BAG IVPB SCH ×2 (00:13→08:26)
[2018-02-26] MEDS: Saccharomyces boulardii 250 MG CAP PO SCH (08:24)
[2018-02-26] MEDS: Enoxaparin Sodium 40 MG/0.4 ML SYRINGE SC SCH (08:25)
[2018-02-26] MEDS: glyBURIDE 2.5 MG TAB PO SCH (08:25)
[2018-02-26] MEDS: metFORMIN 500 MG TAB PO SCH (08:25)
[2018-02-26 08:33] LABS: Vancomycin, Trough 11.2 ug/mL
[2018-02-26] MEDS: HYDROcodone/Acetaminophen 5/325 mg Tablet PO PRN ×2 (08:33→12:52)
[2018-02-26 08:52] VITALS: BP 115/77; TEMP 97.8
--- NOTE | 2018-02-26 11:24 | DIS ---
DATE OF ADMISSION: 02/23/2018 DATE OF DISCHARGE: 02/26/2018 PRIMARY CARE PHYSICIAN: [facility] All. DISCHARGE DISPOSITION: Home. PRIMARY DISCHARGE DIAGNOSES: 1. Cellulitis of left upper extremity with abscess, status post incision and drainage. 2. Failure of outpatient therapy. 3. Hyperglycemia associated with diabetes type 2. 4. Lactic acidosis. 5. Sepsis. SECONDARY DISCHARGE DIAGNOSES: Diabetes type 2, obesity with body mass index 31. PRIMARY PROCEDURE/OPERATION: I&D was done in the emergency room. RADIOLOGICAL INVESTIGATION: Upper extremity CT scan showed cellulitis with abscess. SIGNIFICANT LABORATORY DATA: WBC 8.2, hemoglobin 15.3, platelet 168. Hemoglobin A1c 7.9. Sodium 13 6, potassium 3.8, BUN 10, creatinine 0.72, calcium 8.8. Culture from abscess grew MRSA. Blood cultu re negative. DISCHARGE MEDICATIONS: Bactrim DS 1 tablet twice daily for 10 days, Tylenol #3 one or two tablets q. 6 hourly p.r.n., glyburide 2.5 mg p.o. daily, metformin 1000 mg p.o. b.i.d. CONTRAINDICATIONS: None. CODE STATUS: FULL CODE. INPATIENT CONSULTANTS: None. ALLERGIES: PENICILLIN. DISCHARGE PLAN: Post hospital, the patient will follow up with primary care physician in 1 week. HOSPITAL COURSE: A 42-year-old male with above-mentioned medical problem who was admitted b [address]. Please see his H&P for further details. Patient was admitted for left upper extremi ty swelling and abscess. The patient required I&D in the emergency room. His culture from abscess g rew MRSA. While in hospital initially he was given vancomycin and Zosyn. Subsequently, Zosyn was di scontinued and vancomycin was continued. As patient has MRSA upon discharge, we prescribed Bactrim D S based on culture and sensitivity result, patient had hyperglycemia, so we added glyburide 2.5 mg p. o. daily. The patient is instructed about diabetes monitoring, diabetic diet and follow up with [facility] physician for further adjustment of medication. The patient's learned how to do dressi ng by herself to the patient. Patient's pain is under control. We are prescribing T3 upon discharge for pain. Rest of medication will continue as per previous. All new medication prescription sent t o his pharmacy. The patient is seen and examined at bedside today. Plan of care discussed with the patient and . All review of system reviewed and negative. PHYSICAL EXAMINATION: VITAL SIGNS: Currently, temperature 97.8, pulse 76, respiratory rate 16, saturation 97% on room air, weight 161 pounds. GENERAL: The patient is currently alert, awake, no acute distress. HEAD: Normocephalic, atraumatic. EYES: Pupils round, reactive to light. Extraocular muscle intact. ENT: Oropharynx within normal limits. Moist mucous membranes, no oral lesion, no pharyngeal erythem a, no exudate. NECK: Supple, no JVD, no thyromegaly, no carotid bruit. LUNGS: Clear to auscultation without any rhonchi or rales. CARDIAC: S1, S2 regular. No murmur, no gallop, no rub. ABDOMEN: Soft, bowel sounds present, nontender, nondistended. No organomegaly, no mass, no suprapub ic tenderness. BACK: Unremarkable. No CVA tenderness. EXTREMITIES: Upper extremity passive movements of all joints are normal. Patient does have abscess cavity covered with dressing on left upper extremity. NEUROLOGIC: Nonfocal examination. All new medication prescription sent to his pharmacy.
--- NOTE | 2018-02-26 12:01 | PDOC.PN ---
- Subjective Encounter Start Date: 02/26/18 Encounter Start Time: 09:45 Patient seen and examined. No new complaints. No overnight events - Objective Resuscitation Status: Resuscitation Status FULL:Full Resuscitation MAR Reviewed: Yes Vital Signs & Weight: Vital Signs (12 hours) Temp Pulse Resp BP Pulse Ox 02/26/18 08:00 97.8 F 76 16 115/77 97 Weight Admit Weight 161 lb Weight 161 lb I&O: 02/25/18 02/26/18 02/27/18 06:59 06:59 06:59 Intake Total 2900 2500 200 Balance 2900 2500 200 Result Diagrams: 02/25/18 04:28 02/24/18 04:10 Additional Labs: Accuchecks 02/26/18 02/25/18 02/25/18 04:39 19:58 16:02 POC Glucose 133 H 212 H 178 H Phys Exam - Physical Examination Constitutional: NAD HEENT: PERRLA, moist MMs, sclera anicteric Neck: no JVD, supple Respiratory: no wheezing, no rales, no rhonchi Cardiovascular: RRR, no significant murmur, no rub Gastrointestinal: soft, non-tender, no distention, positive bowel sounds Musculoskeletal: no edema, pulses present Neurological: non-focal, normal sensation, moves all 4 limbs Psychiatric: normal affect, A&O x 3 Skin: no rash, normal turgor Dx/Plan (1) Cellulitis of left upper extremity Code(s): L03.114 - CELLULITIS OF LEFT UPPER LIMB Status: Acute (2) Failure of outpatient treatment Code(s): Z78.9 - OTHER SPECIFIED HEALTH STATUS Status: Acute (3) Hyperglycemia due to type 2 diabetes mellitus Code(s): E11.65 - TYPE 2 DIABETES MELLITUS WITH HYPERGLYCEMIA Status: Acute (4) Lactic acidosis Code(s): E87.2 - ACIDOSIS Status: Acute (5) Sepsis Code(s): A41.9 - SEPSIS, UNSPECIFIED ORGANISM Status: Acute (6) Obesity (BMI 30.0-34.9) Code(s): E66.9 - OBESITY, UNSPECIFIED Status: Chronic - Plan cont current plan of care, plan discussed w/ family, continue antibiotics * medication reviewed as below * symptomatic treatment * see discharge star. Review of Systems - Review of Systems ENT: negative: Ear Pain, Ear Discharge, Nose Pain, Nose Discharge, Nose Congestion, Mouth Pain, Mouth Swelling, Throat Pain, Throat Swelling, Other Respiratory: negative: Cough, Dry, Shortness of Breath, Hemoptysis, SOB with Excertion, Pleuritic Pain, Sputum, Wheezing Cardiovascular: negative: chest pain, palpitations, orthopnea, paroxysmal nocturnal dyspnea, edema, light headedness, other Gastrointestinal: negative: Nausea, Vomiting, Abdominal Pain, Diarrhea, Constipation, Melena, Hematochezia, Other Genitourinary: negative: Dysuria, Frequency, Incontinence, Hematuria, Retention , Other Musculoskeletal: negative: Neck Pain, Shoulder Pain, Arm Pain, Back Pain, Hand Pain, Leg Pain, Foot Pain, Other Skin: negative: Rash, Lesions, Issa, Bruising, Other - Medications/Allergies Allergies/Adverse Reactions: Allergies Allergy/AdvReac Type Severity Reaction Status Date / Time Penicillins Allergy Verified 12/14/15 23:30 Medications: Current Medications Acetaminophen (Tylenol) 650 mg PO Q4H PRN PRN Reason: Headache/Fever or Pain Last Admin: 02/24/18 17:04 Dose: 650 mg Hydrocodone Bitart/Acetaminophen (Henry 5/325) 1 tab PO Q4H PRN PRN Reason: Moderate Pain (4-6) Last Admin: 02/26/18 08:33 Dose: 1 tab Al Hydroxide/Mg Hydroxide (Maalox) 15 ml PO Q4H PRN PRN Reason: Heartburn or Indigestion Artificial Tears (Tears Renewed 15ml Bottle) 0 drop EA EYE PRN PRN PRN Reason: Dry Eyes Dextrose/Water (Dextrose 50%) 25 gm SLOW IVP PRN PRN PRN Reason: Hypoglycemia Enoxaparin Sodium (Lovenox) 40 mg SC 0900 [facility] Last Admin: 02/26/18 08:25 Dose: 40 mg Famotidine (Pepcid) 20 mg PO BIDPRN PRN PRN Reason: Heartburn or Indigestion Glucagon (Glucagon) 1 mg IM PRN PRN PRN Reason: Hypoglycemia Glyburide (Micronase) 2.5 mg PO QA[facility] Last Admin: 02/26/18 08:25 Dose: 2.5 mg Guaifenesin (Robitussin Sf) 200 mg PO Q4H PRN PRN Reason: Cough Hydralazine HCl (Apresoline) 10 mg SLOW IVP Q4H PRN PRN Reason: Systolic BP > 180 Dextrose/Water (D5w) 1,000 mls @ 0 mls/hr IV .Q0M PRN PRN Reason: Hypoglycemia Vancomycin HCl 1.25 gm/ Sodium (Chloride) 250 mls @ 166.667 mls/hr IVPB 0100, 0900,1700 [facility] Insulin Human Regular (Humulin R) 0 units SC .MILD SLIDING SCALE PRN PRN Reason: Mild Correctional Scale Last Admin: 02/25/18 05:50 Dose: 3 unit Loperamide HCl (Imodium) 2 mg PO PRN PRN PRN Reason: Diarrhea/Loose Stools Loratadine (Claritin) 10 mg PO DAILYPRN PRN PRN Reason: Sinus Symptoms Magnesium Hydroxide (Milk Of Magnesium) 30 ml PO DAILYPRN PRN PRN Reason: Constipation Metformin HCl (Glucophage) 1,000 mg PO BID [facility] Last Admin: 02/26/18 08:25 Dose: 1,000 mg Mineral Oil/White Petrolatum (Eucerin Cream) 0 gm TOP BIDPRN PRN PRN Reason: Dry Skin Miscellaneous Medication (Pharmacy To Dose) 1 each IVPB PRN PRN PRN Reason: Pharmacy to dose Morphine Sulfate (Morphine) 4 mg SLOW IVP Q4H PRN PRN Reason: Pain Last Admin: 02/25/18 10:26 Dose: 4 mg Ondansetron HCl (Zofran) 4 mg IVP Q6H PRN PRN Reason: Nausea/Vomiting Last Admin: 02/24/18 19:41 Dose: 4 mg Ondansetron HCl (Zofran Odt) 4 mg PO Q6H PRN PRN Reason: Nausea/Vomiting Phenol (Chloraseptic [place] 180 Ml Bot) 0 ml PO PRN PRN PRN Reason: Sore Throat Saccharomyces Boulardii (Florastor) 250 mg PO DAILY [facility] Last Admin: 02/26/18 08:24 Dose: 250 mg Senna (Senokot) 2 tab PO HSPRN PRN PRN Reason: Constipation Sodium Chloride (Gillespie Nasal [place] 0.65%) 0 ml EA NARE QIDPRN PRN PRN Reason: Nasal Congestion Sodium Chloride (Flush - Normal Saline) 10 ml IVF Q12HR [facility] Last Admin: 02/26/18 08:26 Dose: 10 ml Sodium Chloride (Flush - Normal Saline) 10 ml IVF PRN PRN PRN Reason: Saline Flush Tramadol HCl (Ultram) 50 mg PO Q6H PRN PRN Reason: Pain 4-6 Last Admin: 02/24/18 08:07 Dose: 50 mg Zolpidem Tartrate (Ambien) 5 mg PO HSPRN PRN PRN Reason: Insomnia
[2018-02-26] MEDS: Insulin Regular 300 UNITS/3 ML VIAL SC PRN (12:53)
[2018-02-26] MEDS ORDERED: Vancomycin HCl 1.25 GM in Sodium Chloride 0.9% 250 ML 250 ML IVPB SCH (17:00)
== END 2018-02-26 16:09 | disposition home or self-care (01) | DRG 602 ==
LOC: ERS 17:13 → T4-B 19:28
PROVIDERS: ADMIT Hospitalist; ATTEND Hospitalist
PROC: 0X990ZZ Drainage of Left Upper Arm, Open Approach (ICD-10-PCS; principal; 2018-02-23)
DX: L02.414 Cutaneous abscess of left upper limb (principal); A41.9 Sepsis, unspecified organism; E87.2 Acidosis; E87.1 Hypo-osmolality and hyponatremia; L03.114 Cellulitis of left upper limb; Z88.0 Allergy status to penicillin; E11.65 Type 2 diabetes mellitus with hyperglycemia; Z79.84 Long term (current) use of oral hypoglycemic drugs; E66.9 Obesity, unspecified; Z68.31 Body mass index [BMI] 31.0-31.9, adult; B95.62 Methicillin resistant Staphylococcus aureus infection as the cause of diseases classified elsewhere
CPT/HCPCS: 36415; 36416; 80048; 80053; 80202; 83036; 83605; 85025; 86140; 87040; 87070; 87077; 87186; 87205; 96365; 96366; 96367; 96375; A4216; J0692; J1650; J1815; J2270; J2405; J3370; J7050

== ENCOUNTER 2018-05-08 16:44 | Emergency (ER) | payer SELFPAY | END 2018-05-08 18:24 | disposition left against medical advice (07) | LOC: ERS 16:44 | DX: Z53.21 Procedure and treatment not carried out due to patient leaving prior to being seen by health care provider (principal) ==

== ENCOUNTER 2018-05-08 18:43 | Emergency (ER) | payer SELFPAY ==
[2018-05-08] MEDS ORDERED: Cyclobenzaprine 10 MG TAB ONE (19:22)
[2018-05-08] MEDS ORDERED: Ketorolac Tromethamine 30 MG/ML VIAL ONE (19:22)
--- NOTE | 2018-05-08 19:54 | RAD ---
LUMBAR SPINE TWO VIEWS: 05/08/18 HISTORY: Low back pain. FINDINGS: There are five lumbar type vertebrae. Pedicles are intact. Moderate osteophytosis. Vertebral body hei ghts and alignment are maintained. Spinous processes have a normal appearance on the lateral view. IMPRESSION: No acute osseous abnormalities are demonstrated. POS: [facility]
== END 2018-05-08 20:15 | disposition home or self-care (01) ==
LOC: SCSER 18:43
DX: M54.5 Low back pain (principal); I10 Essential (primary) hypertension; E11.9 Type 2 diabetes mellitus without complications
CPT/HCPCS: 72100; 96372; J1885

== ENCOUNTER 2018-07-23 12:07 | Emergency (ER) | payer SELFPAY | END 2018-07-23 12:35 | disposition home or self-care (01) | LOC: SCSER 12:07 | DX: H60.91 Unspecified otitis externa, right ear (principal); J20.9 Acute bronchitis, unspecified; E11.9 Type 2 diabetes mellitus without complications; Z79.84 Long term (current) use of oral hypoglycemic drugs | CPT/HCPCS: 99283 ==

== ENCOUNTER 2018-09-26 20:43 | Emergency (ER) | payer BC, SELFPAY ==
[2018-09-26] MEDS ORDERED: Metoclopramide HCl 10 MG/2 ML VIAL ONE (21:36)
[2018-09-26] MEDS ORDERED: diphenhydrAMINE 50 MG/ML VIAL ONE (21:36)
[2018-09-26] MEDS ORDERED: Acetaminophen 500 MG TAB ONE (21:36)
--- NOTE | 2018-09-26 21:53 | CT ---
CT OF THE BRAIN WITHOUT CONTRAST: 09/26/18 INDICATION: Headache. COMPARISON: Prior exam dated 02/06/17. FINDINGS: No acute infarct, hemorrhage, or hydrocephalus is present. Septum pellucidum and third ventricle appe ar midline. Skull and extracranial soft tissues appear within normal limits. IMPRESSION: No acute intracranial abnormality. POS: [facility]
== END 2018-09-26 23:05 | disposition home or self-care (01) ==
LOC: SCSER 20:43
DX: R51 Headache (principal); E11.9 Type 2 diabetes mellitus without complications; Z79.84 Long term (current) use of oral hypoglycemic drugs
CPT/HCPCS: 70450; 96365; 96375; J1200; J2765

== ENCOUNTER 2018-09-30 23:14 | Emergency (ER) | payer BC ==
[2018-09-30 23:44] LABS: #Basophils 0.1 thou/uL (0.0-0.2); #Eosinphils 0.3 thou/uL (0.0-0.7); #Lymphocytes 2.2 thou/uL (1.20-3.40); #Monocytes 0.6 thou/uL (0.11-0.59); #Neutrophils 4.3 thou/uL (1.40-6.50); %Basophils 1.2 % (0.0-1.0); %Eosinophils 3.4 % (0.0-10.0); %Monocytes 7.5 % (0.0-10.0); %Neutrophils 57.9 % (42.0-75.0); Hemoglobin 14.6 g/dL (14.0-18.0); Mean Corpuscular Hemoglobin 30.8 pg (27.0-31.0); Mean Corpuscular Volume 90.5 fL (78.0-98.0); Mean Platelet Volume 9.4 fL (7.4-10.4); Platelet Count 192 thou/uL (130-400); Red Blood Cell (RBC) Count 4.75 mill/uL (4.70-6.10); White Blood Cell (WBC) Count 7.5 thou/uL (4.8-10.8)
--- NOTE | 2018-09-30 23:59 | RAD ---
PORTABLE AP CHEST X-RAY 09/30/18 HISTORY: Chest pain. COMPARISON: 06/29/17. FINDINGS: The cardiac silhouette is magnified by projection. The pulmonary vasculature is within normal limits. The lungs remain clear. There is suggestion of a remote healed middle one third left clavicle fractu re, degenerative changes are seen in the spine. There has been no interval change from prior exam. IMPRESSION: No acute cardiopulmonary process. POS: [facility]
[2018-10-01 00:05] LABS: ALT (SGPT) 32 U/L (8-55); AST (SGOT) 15 U/L (5-34); Albumin 4.2 g/dL (3.5-5.0); Alkaline Phosphatase 95 U/L (40-150); Anion Gap 13 mmol/L (10-20); BUN (Urea Nitrogen) 13 mg/dL (8.9-20.6); Bilirubin, Total 0.4 mg/dL (0.2-1.2); Calc. Creatinine Clearance 0 mL/min (70-130); Calcium 9.7 mg/dL (7.8-10.44); Carbon Dioxide 27 mmol/L (22-29); Chloride 101 mmol/L (98-107); Estimated GFR-MDRD Greater than 90; Globulin 3.5 g/dL (2.4-3.5); Glucose 318 mg/dL (70-105); Potassium 3.8 mmol/L (3.5-5.1); Protein, Total 7.7 g/dL (6.0-8.3); Sodium 137 mmol/L (136-145)
[2018-10-01] MEDS ORDERED: Aspirin Chewable 81 MG TAB ONE (00:26)
[2018-10-01] MEDS ORDERED: Nitroglycerin 0.4 MG TAB 1 EACH ONE ×2 (00:26→01:32)
--- NOTE | 2018-10-04 17:02 | EKG ---
Test Reason : Blood Pressure : / mmHG Vent. Rate : 099 BPM Atrial Rate : 099 BPM P-R Int : 124 ms QRS Dur : 082 ms QT Int : 326 ms P-R-T Axes : 030 -18 005 degrees QTc Int : 418 ms Normal sinus rhythm Normal ECG Confirmed by BRIT PEPPER ([id number]), supervising film or videotape editor AXEL BECERRIL ([id number]) on 10/04/2018 5:02:19 PM Referred By: Confirmed By:BRIT PEPPER
== END 2018-10-01 02:28 | disposition short-term general hospital (02) ==
LOC: ERS 23:14
DX: R07.9 Chest pain, unspecified (principal); E11.9 Type 2 diabetes mellitus without complications; Z79.84 Long term (current) use of oral hypoglycemic drugs; Z79.899 Other long term (current) drug therapy
CPT/HCPCS: 36415; 71045; 80053; 84484; 85025; 93005

== ENCOUNTER 2018-12-04 17:34 | Emergency (ER) | payer BC ==
[2018-12-04] MEDS ORDERED: Ondansetron ODT 8 MG TAB ONE (17:55)
[2018-12-04] MEDS ORDERED: Morphine 10 MG/ML VIAL ONE (17:55)
[2018-12-04 18:10] LABS: #Basophils 0.1 thou/uL (0.0-0.2); #Eosinphils 0.3 thou/uL (0.0-0.7); #Lymphocytes 2.4 thou/uL (1.20-3.40); #Monocytes 0.6 thou/uL (0.11-0.59); #Neutrophils 5.8 thou/uL (1.40-6.50); %Basophils 1.1 % (0.0-1.0); %Eosinophils 3.4 % (0.0-10.0); %Lymphocytes 26.6 % (21.0-51.0); %Monocytes 6.1 % (0.0-10.0); %Neutrophils 62.9 % (42.0-75.0); Hemoglobin 15.4 g/dL (14.0-18.0); Mean Corpuscular HGB CONC 35.4 g/dL (32.0-36.0); Mean Corpuscular Hemoglobin 32.3 pg (27.0-31.0); Mean Corpuscular Volume 91.2 fL (78.0-98.0); Platelet Count 201 thou/uL (130-400); RBC Distribution Width 10.9 % (11.5-14.5); Red Blood Cell (RBC) Count 4.77 mill/uL (4.70-6.10); White Blood Cell (WBC) Count 9.2 thou/uL (4.8-10.8)
[2018-12-04 18:35] LABS: ALT (SGPT) 34 U/L (8-55); AST (SGOT) 21 U/L (5-34); Albumin 4.3 g/dL (3.5-5.0); Alkaline Phosphatase 80 U/L (40-150); Anion Gap 14 mmol/L (10-20); BUN (Urea Nitrogen) 12 mg/dL (8.9-20.6); Bilirubin, Total 0.5 mg/dL (0.2-1.2); Calc. Creatinine Clearance 0 mL/min (70-130); Calcium 9.9 mg/dL (7.8-10.44); Carbon Dioxide 24 mmol/L (22-29); Chloride 103 mmol/L (98-107); Estimated GFR-MDRD Greater than 90; Globulin 3.5 g/dL (2.4-3.5); Glucose 135 mg/dL (70-105); Magnesium 1.7 mg/dL (1.6-2.6); Potassium 3.5 mmol/L (3.5-5.1); Protein, Total 7.8 g/dL (6.0-8.3); Sodium 137 mmol/L (136-145)
== END 2018-12-04 18:55 | disposition home or self-care (01) ==
LOC: ERS 17:34
DX: R20.2 Paresthesia of skin (principal); E11.9 Type 2 diabetes mellitus without complications; Z79.84 Long term (current) use of oral hypoglycemic drugs
CPT/HCPCS: 36415; 80053; 83735; 85025; 96372; J2270

== ENCOUNTER 2019-08-19 09:11 | Observation (INO) | payer BC ==
[2019-08-19 09:36] LABS: #Basophils 0.1 thou/uL (0.0-0.2); #Eosinphils 0.2 thou/uL (0.0-0.7); #Lymphocytes 2.1 thou/uL (1.20-3.40); #Monocytes 0.5 thou/uL (0.11-0.59); #Neutrophils 4.9 thou/uL (1.40-6.50); %Basophils 1.2 % (0.0-1.0); %Lymphocytes 27.1 % (21.0-51.0); %Monocytes 5.9 % (0.0-10.0); %Neutrophils 62.8 % (42.0-75.0); Hemoglobin 16.1 g/dL (14.0-18.0); Mean Corpuscular HGB CONC 34.7 g/dL (32.0-36.0); Mean Corpuscular Hemoglobin 31.1 pg (27.0-31.0); Mean Corpuscular Volume 89.9 fL (78.0-98.0); Mean Platelet Volume 10.3 fL (7.4-10.4); Platelet Count 172 thou/uL (130-400); RBC Distribution Width 11.1 % (11.5-14.5); Red Blood Cell (RBC) Count 5.18 mill/uL (4.70-6.10); White Blood Cell (WBC) Count 7.8 thou/uL (4.8-10.8)
--- NOTE | 2019-08-19 09:40 | RAD ---
EXAM: Single view of the chest HISTORY: Chest pain COMPARISON: 09/30/2018 FINDINGS: Single view of the chest shows a normal sized cardiomediastinal silhouette. There is no freddie dence of consolidation, mass, or pleural effusion. The bones are unremarkable. IMPRESSION: No evidence of acute cardiopulmonary disease
[2019-08-19] MEDS ORDERED: Aspirin Chewable 81 MG TAB ONE (09:44)
[2019-08-19 09:57] LABS: ALT (SGPT) 49 U/L (8-55); AST (SGOT) 29 U/L (5-34); Albumin 4.2 g/dL (3.5-5.0); Alkaline Phosphatase 107 U/L (40-110); Anion Gap 13 mmol/L (10-20); BUN (Urea Nitrogen) 13 mg/dL (8.9-20.6); Bilirubin, Total 0.6 mg/dL (0.2-1.2); Calc. Creatinine Clearance 0 mL/min (70-130); Calcium 9.2 mg/dL (7.8-10.44); Carbon Dioxide 24 mmol/L (22-29); Chloride 102 mmol/L (98-107); Estimated GFR-MDRD Greater than 90; Globulin 3.5 g/dL (2.4-3.5); Glucose 386 mg/dL (70-105); Protein, Total 7.7 g/dL (6.0-8.3); Sodium 135 mmol/L (136-145)
[2019-08-19] MEDS ORDERED: Morphine 4 MG/ML VIAL ONE ×2 (10:11→12:36)
[2019-08-19] MEDS ORDERED: Ondansetron PF 4 MG/2 ML Vial ONE ×2 (10:11→12:35)
[2019-08-19] MEDS ORDERED: Nitroglycerin 0.4 MG TAB 1 EACH ONE (10:33)
[2019-08-19 11:42] LABS: Troponin I 0.011 ng/mL (< 0.028)
[2019-08-19 15:25] LABS: Troponin I Less than 0.010 ng/mL (< 0.028)
--- NOTE | 2019-08-19 15:52 | PDOC.FPRHP ---
- History of Present Illness Chief Complaint: chest pain History of Present Illness: Des Griffiths is a 44 year old M with a PMH of DM2 who presented to the ED with a several day history of intermittent substernal chest pain, worsened with exertion and also occurring at rest, described as substernal, pressure like pain. No radiation. No associated diaphoresis, n/v, dyspnea. No history of CAD. Hx of stress >5 years ago was negative per patient. Chest pain resolves on its own. This morning CP returned at 6:30 AM and did not resolve prompting him to go to ER. In the ED, EKG showed NSR no ST changes. CXR was negative. Patient was given morphine 4 mg twice, nitro, zofran, asa and chest pain did not improve. - Allergies/Adverse Reactions Allergies Allergy/AdvReac Type Severity Reaction Status Date / Time Penicillins Allergy Verified 12/14/15 23:30 - Home Medications Medication Instructions Recorded Confirmed Type metFORMIN HCl [Metformin HCl] 1,000 mg PO BID 02/23/18 08/19/19 History Aspirin [Ecotrin Low Strength] 81 mg PO DAILY #30 tab 08/20/19 Rx - History PMHx: DM2 PSHx: cholecystectomy FHx: DM2, CAD Social: denies smoking, rare alcohol use, denies drugs - Review of Systems General: denies: fever/chills, weight/appetite/sleep changes, fatigue Eyes: denies: eye pain, vision changes ENT: denies: nasal congestion, rhinorrhea Respiratory: denies: cough, congestion, shortness of breath, exercise intolerance Cardiovascular: reports: chest pain. denies: palpitation, edema, orthopnea Gastrointestinal: denies: nausea, vomiting, diarrhea, abdominal pain Genitourinary: denies: incontinence, dysuria Skin: denies: rashes, lesions Musculoskeletal: denies: pain, tenderness Neurological: denies: syncope, weakness Psychological: denies: anxiety, depression - Vital signs BP: 106/85 HR: 91 RR: 14 Tmax: 97.9 Pox: 96% on RA Wt: 68 kg - Physical Exam Constitutional: NAD, awake, alert and oriented, well developed HEENT: normocephalic and atraumatic, PERRLA, EOMI, grossly normal vision, grossly normal hearing Neck: supple, FROM Chest: no lesions -Chest: start pain is reproducible with palpation Heart: RRR, normal S1/S2, no murmurs/rubs/gallops, no edema Lungs: CTAB, no respiratory distress, good air movement Abdomen: soft, non-tender, bowel sounds present Musculoskeletal: normal structure, normal tone, ROM grossly normal Neurological: no focal deficit, CN II-XII intact, normal sensation Skin: no rash/lesions, good turgor Heme/Lymphatic: no unusual bruising or bleeding, no purpura Psychiatric: normal mood and affect, good judgment and insight, intact recent and remote memory FMR H&P: Results - Labs Result Diagrams: 08/20/19 04:24 08/20/19 04:24 Lab results: WBC 7.8 thou/uL (4.8-10.8) 08/19/19 09:27 Hgb 16.1 g/dL (14.0-18.0) 08/19/19 09:27 Hct 46.6 % (42.0-52.0) 08/19/19 09:27 MCV 89.9 fL (78.0-98.0) 08/19/19 09:27 Plt Count 172 thou/uL (130-400) 08/19/19 09:27 Neutrophils % 62.8 % (42.0-75.0) 08/19/19 09:27 Sodium 135 mmol/L (136-145) L 08/19/19 09:27 Potassium 4.0 mmol/L (3.5-5.1) 08/19/19 09:27 Chloride 102 mmol/L (98-107) 08/19/19 09:27 Carbon Dioxide 24 mmol/L (22-29) 08/19/19 09:27 BUN 13 mg/dL (8.9-20.6) 08/19/19 09:27 Creatinine 0.83 mg/dL (0.7-1.3) 08/19/19 09:27 Glucose 386 mg/dL (70-105) H 08/19/19 09:27 Calcium 9.2 mg/dL (7.8-10.44) 08/19/19 09:27 Total Bilirubin 0.6 mg/dL (0.2-1.2) 08/19/19 09:27 AST 29 U/L (5-34) 08/19/19 09:27 ALT 49 U/L (8-55) 08/19/19 09:27 Alkaline Phosphatase 107 U/L (40-110) 08/19/19 09:27 Serum Total Protein 7.7 g/dL (6.0-8.3) 08/19/19 09:27 Albumin 4.2 g/dL (3.5-5.0) 08/19/19 09:27 - EKG Interpretation EKG: NSR without ST changes - Radiology Interpretation Chest x-ray Status: image reviewed by me (No acute cardiopulmonary findings), report reviewed by me FMR H&P: A/P - Problem List (1) Chest pain, rule out acute myocardial infarction Current Visit: Yes Status: Acute Code(s): R07.9 - CHEST PAIN, UNSPECIFIED (2) Hyperglycemia due to type 2 diabetes mellitus Current Visit: No Status: Acute Code(s): E11.65 - TYPE 2 DIABETES MELLITUS WITH HYPERGLYCEMIA - Plan 1) Typical Chest pain: r/o ACS - substernal, nonradiating, pressure like pain - occurs at rest, worse with exertion - reproducible with palpitation - no hx of CAD, neg stress > 5 yr ago per pt - will place pt on tele obs - continuous cardiac monitoring - stress in AM - ASA - check TSH, Mag, FLP 2) DM2 - hyperglycemic in ED - currently only on metformin 1000 mg bid per pt - SSI - ACHS accuchecks - hold metformin during stay Code Status: Full Code PCP: None, [facility] Call Addendum - Attending - Attending Attestation Date/Time: 08/20/19 4043 I personally evaluated the patient and discussed the management with Dr. Dr. Aldrich yesterday afternoon. I agree with the History, Examination, Assessment and Plan documented above with any addition or exceptions noted below. Patient and his confirm that his PCP is at [facility]. He sees a different doctor frequently there.
[2019-08-19 16:17] VITALS: BMI 29.6
[2019-08-19] MEDS ORDERED: Ondansetron ODT 4 MG TAB SL PRN (16:20)
[2019-08-19] MEDS ORDERED: Morphine 4 MG/ML VIAL SLOW IVP PRN (16:20)
[2019-08-19] MEDS ORDERED: Ondansetron PF 4 MG/2 ML Vial IVP PRN ×2 (16:20→16:42)
[2019-08-19] MEDS ORDERED: Nitroglycerin 0.4 MG TAB (25 Tab Bottle) PO PRN (16:42)
[2019-08-19] MEDS ORDERED: Dextrose 5% in Water 1,000 ML IV PRN (16:42)
[2019-08-19] MEDS ORDERED: Dextrose 50% Abboject 50 ML SYRINGE SLOW IVP PRN (16:42)
[2019-08-19] MEDS: HumaLOG 300 UNITS/3 ML VIAL SC PRN ×2 (18:05→23:02)
[2019-08-19] MEDS: Acetaminophen 325 MG TAB PO PRN (20:46)
[2019-08-19] MEDS ORDERED: Lidocaine 2% Viscous Solution 10 ML, Aluminum & Magnesium Hydroxide 30 ML SSW SCH (23:30)
[2019-08-20 00:17] LABS: Troponin I Less than 0.010 ng/mL (< 0.028)
[2019-08-20 04:56] LABS: #Basophils 0.1 thou/uL (0.0-0.2); #Eosinphils 0.3 thou/uL (0.0-0.7); #Lymphocytes 2.3 thou/uL (1.20-3.40); #Monocytes 0.4 thou/uL (0.11-0.59); #Neutrophils 4.4 thou/uL (1.40-6.50); %Basophils 0.9 % (0.0-1.0); %Eosinophils 4.2 % (0.0-10.0); %Lymphocytes 30.5 % (21.0-51.0); %Monocytes 5.7 % (0.0-10.0); %Neutrophils 58.7 % (42.0-75.0); Hemoglobin 15.7 g/dL (14.0-18.0); Mean Corpuscular HGB CONC 34.9 g/dL (32.0-36.0); Mean Corpuscular Hemoglobin 31.6 pg (27.0-31.0); Mean Corpuscular Volume 90.3 fL (78.0-98.0); Mean Platelet Volume 10.1 fL (7.4-10.4); Platelet Count 165 thou/uL (130-400); RBC Distribution Width 11.2 % (11.5-14.5); Red Blood Cell (RBC) Count 4.97 mill/uL (4.70-6.10); White Blood Cell (WBC) Count 7.6 thou/uL (4.8-10.8)
[2019-08-20 05:27] LABS: Anion Gap 10 mmol/L (10-20); BUN (Urea Nitrogen) 15 mg/dL (8.9-20.6); Calc. Creatinine Clearance 110 mL/min (70-130); Calcium 9.1 mg/dL (7.8-10.44); Carbon Dioxide 29 mmol/L (22-29); Cardiac Risk 5.9 (Less than 4.5); Chloride 101 mmol/L (98-107); Cholesterol 190 mg/dl (< 200 Desired); Estimated GFR-MDRD Greater than 90; Glucose 227 mg/dL (70-105); HDL Cholesterol 32 mg/dL (>60 Neg Risk); LDL Cholesterol, Calculated 124 mg/dL; Potassium 3.8 mmol/L (3.5-5.1); Sodium 136 mmol/L (136-145); Triglycerides 170 mg/dL (Less than 150)
--- NOTE | 2019-08-20 06:26 | PDOC.FM ---
- Subjective Subjective: Overnight continued to have chest pain, not relieved with Morphine, Tylenol or GI cocktail. Currently NPO for stress test this AM. Denies SOB. - Objective MAR Reviewed: Yes Vital Signs & Weight: Vital Signs (12 hours) Temp Pulse Resp BP Pulse Ox 08/20/19 03:55 97.8 F 74 14 122/74 98 08/19/19 19:29 98.4 F 85 16 118/75 97 Weight Weight 69.763 kg I&O: 08/18/19 08/19/19 08/20/19 06:59 06:59 06:59 Intake Total 480 Balance 480 Result Diagrams: 08/20/19 04:24 08/20/19 04:24 Phys Exam - Physical Examination Constitutional: NAD HEENT: moist MMs Neck: supple Respiratory: no wheezing, clear to auscultation bilateral Cardiovascular: RRR, no significant murmur Gastrointestinal: soft, non-tender Musculoskeletal: no edema Neurological: moves all 4 limbs Psychiatric: normal affect, A&O x 3 Skin: normal turgor Dx/Plan - Plan Plan: Typical Chest pain r/o ACS - no hx of CAD, neg stress > 5yrs ago per pt - NPO for stress test today - Daily ASA DM2 - On metformin 1000mg BID, held this admission - SSI, ACHS accuchecks. CC once no longer NPO Code Status: Full DVT ppx: SCDs Addendum - Attending - Attending Attestation Date/Time: 08/20/19 1043 I personally evaluated the patient and discussed the management with Dr. Griffiths. I agree with the History, Examination, Assessment and Plan documented above with any addition or exceptions noted below. Patient doing well. Continues to complain of midsternal chest pain that is constant, not really consistent with ACS. He is undergoing stress testing today and further mgmt per that result.
[2019-08-20] MEDS ORDERED: Insulin Glargine 10 UNITS in Pre-Filled Syringe 1 EACH SC SCH (08:15)
[2019-08-20] MEDS: Acetaminophen 325 MG TAB PO PRN (08:19)
[2019-08-20 08:48] LABS: Hemoglobin A1c 9.6 % (4.0-6.0)
[2019-08-20] MEDS ORDERED: FLU VACC QS2019-20(6MOS UP)/PF 60 MCG/0.5 ML SYRINGE IM ONE (09:00)
[2019-08-20] MEDS ORDERED: Aspirin 81 mg Enteric Coated Tablet PO SCH (09:00)
[2019-08-20] MEDS ORDERED: Enoxaparin Sodium 40 MG/0.4 ML SYRINGE SC SCH (09:00)
[2019-08-20] MEDS: HumaLOG 300 UNITS/3 ML VIAL SC PRN (12:55)
--- NOTE | 2019-08-20 13:20 | NM ---
Nuclear medicine Cardiac myocardial perfusion SPECT Ejection fraction study Wall motion cine: DATE:08/20/2019 12:00 AM INDICATION: Chest pain TECHNIQUE: Number of days:2 Rest Study: Technetium 99m-sestamibi (Cardiolite) dose:9.00 mCi Stress study: Technetium 99m-sestamibi (Cardiolite) dose:29.90 mCi FINDINGS: Cardiac (myocardial perfusion) SPECT There are no reversible myocardial perfusion defects. Ejection fraction study Left ventricular EF = 64% Wall motion cine Normal wall motion and thickening IMPRESSION: No evidence of reversible myocardial ischemia.
[2019-08-20 13:33] VITALS: BP 125/80; TEMP 97.6
[2019-08-20] MEDS ORDERED: ADENOSINE 60 MG/20 ML VIAL ONE (14:03)
--- NOTE | 2019-08-20 18:09 | DIS ---
DATE OF ADMISSION: 08/19/2019 DATE OF DISCHARGE: 08/20/2019 RESIDENT: Candis Lugo, PGY-2. ADMITTING ATTENDING: James Vasquez MD DISCHARGE ATTENDING: Sushil Cortez MD. CONSULTS: None. PROCEDURES: 1. Chest x-ray on 08/10/2019, no evidence of acute cardiopulmonary disease. 2. Nuclear stress test on 08/20/2019, no evidence of reversible ischemia. PRIMARY DIAGNOSIS: Atypical chest pain. SECONDARY DIAGNOSIS: Type 2 diabetes. DISCHARGE MEDICATIONS: 1. Metformin 1000 mg b.i.d. 2. Atorvastatin 40 mg at bedtime, new medication. 3. Aspirin 81 mg daily. HISTORY OF PRESENT ILLNESS/HOSPITAL COURSE: Mr. Griffiths is a 44-year-old male with past medical history of type 2 diabetes, presented to the ED with intermittent substernal chest pain, worse with exertion. Last stress test greater than 5 years ago negative. Did not resolve with GI cocktail, morphine, or Tylenol. TSH were normal. He was started on aspirin daily and troponins were negative x3. EKG showed no ST-segment changes. Stress test was negative. He is noted to have elevated cholesterol on fasting lipid panel, started on atorvastatin 40. In regard to his type 2 diabetes, he was noted to be hyperglycemic and was actually put on Lantus 10 due to blood sugars being in the 300s to 400s. The patient is only on metformin 1000 mg b.i.d. at home; therefore, his A1c was checked and is 9.6. The metformin was held during the stay due to the possibility of cardiac cath. The patient sees PCP at [facility]; therefore, he can follow up with diabetes there. DISPOSITION: Stable. DISCHARGE INSTRUCTIONS: 1. Location: Home. 2. Diet: Carb consistent. 3. Activity: No restrictions. 4. Follow up with PCP at [facility] within 5 days. Job ID: [id number] [id number]
[2019-08-20] MEDS ORDERED: Atorvastatin Calcium 40 MG TAB PO SCH (21:00)
== END 2019-08-20 14:06 | disposition home or self-care (01) ==
LOC: ERS 09:11 → 2SW 15:58
PROVIDERS: ADMIT Family Medicine; ATTEND Family Medicine
DX: R07.89 Other chest pain (principal); E11.65 Type 2 diabetes mellitus with hyperglycemia; E78.00 Pure hypercholesterolemia, unspecified; Z79.84 Long term (current) use of oral hypoglycemic drugs; Z88.0 Allergy status to penicillin
CPT/HCPCS: 36415; 36416; 71045; 78452; 80048; 80053; 80061; 83036; 84443; 84484; 85025; 90471; 90686; 90732; 93005; 93017; 96372; 96374; 96375; A9500; G0008; G0009; G0378; J0153; J1650; J1815; J2270; J2405

== ENCOUNTER 2022-03-08 13:29 | Emergency (ER) | payer SELFPAY ==
[2022-03-08 14:12] LABS: #Eosinphils 0.2 thou/uL (0.0-0.7); #Lymphocytes 1.9 thou/uL (1.20-3.40); #Monocytes 0.3 thou/uL (0.11-0.59); #Neutrophils 3.7 thou/uL (1.40-6.50); %Basophils 0.6 % (0.0-1.0); %Eosinophils 3.4 % (0.0-10.0); %Lymphocytes 30.8 % (21.0-51.0); %Monocytes 5.4 % (0.0-10.0); %Neutrophils 59.8 % (42.0-75.0); Hemoglobin 15.7 g/dL (14.0-18.0); Mean Corpuscular HGB CONC 34.3 g/dL (32.0-36.0); Mean Corpuscular Hemoglobin 31.8 pg (27.0-31.0); Mean Corpuscular Volume 92.6 fL (78.0-98.0); Mean Platelet Volume 9.4 fL (7.4-10.4); Platelet Count 164 thou/uL (130-400); RBC Distribution Width 11.1 % (11.5-14.5); Red Blood Cell (RBC) Count 4.95 mill/uL (4.70-6.10); White Blood Cell (WBC) Count 6.2 thou/uL (4.8-10.8)
[2022-03-08 14:49] LABS: ALT (SGPT) 25 U/L (8-55); AST (SGOT) 21 U/L (5-34); Albumin 4.3 g/dL (3.5-5.0); Alkaline Phosphatase 74 U/L (40-110); Anion Gap 15 mmol/L (10-20); BUN (Urea Nitrogen) 13 mg/dL (8.9-20.6); Bilirubin, Total 0.8 mg/dL (0.2-1.2); Calc. Creatinine Clearance 0 mL/min (70-130); Calcium 9.7 mg/dL (7.8-10.44); Carbon Dioxide 23 mmol/L (22-29); Chloride 104 mmol/L (98-107); Estimated GFR 109; Globulin 3.3 g/dL (2.4-3.5); Glucose 257 mg/dL (70-105); Lipase 27 U/L (8-78); Potassium 4.3 mmol/L (3.5-5.1); Protein, Total 7.6 g/dL (6.0-8.3); Sodium 138 mmol/L (136-145)
[2022-03-08] MEDS ORDERED: Mag-Al 1200 mg/1200 mg/30 ML UDCUP ONE (14:54)
[2022-03-08] MEDS ORDERED: Lidocaine Viscous Sol 2% 15 ml UD Cup ONE (14:54)
[2022-03-08] MEDS ORDERED: Ondansetron PF 4 MG/2 ML Vial ONE (15:21)
[2022-03-08] MEDS ORDERED: Morphine 4 MG/ML VIAL ONE (15:21)
[2022-03-08 15:28] LABS: Bilirubin Negative (Negative); Blood, Urine Negative (Negative); Clarity Clear (Clear); Glucose, Urine (Dipstick) Greater than 1000 mg/dL (Negative); Ketone, Urine Negative (Negative); Leukocyte Negative Leu/uL (Negative); Nitrite Negative (Negative); Protein, Urine (Dipstick) Negative (Neg-Trace); Specific Gravity, Urine 1.039 (1.002-1.036); Urobilinogen Normal mg/dL (Less than 2)
== END 2022-03-08 15:59 | disposition home or self-care (01) ==
LOC: ERS 13:29
DX: R10.12 Left upper quadrant pain (principal); E11.9 Type 2 diabetes mellitus without complications; Z79.84 Long term (current) use of oral hypoglycemic drugs; Z79.899 Other long term (current) drug therapy
CPT/HCPCS: 36416; 76700; 80053; 81003; 83690; 85025; 94760; 96374; 96375; J2270; J2405

== ENCOUNTER 2022-09-26 18:28 | Emergency (ER) | payer BC ==
[2022-09-26 19:30] LABS: #Basophils 0.1 thou/uL (0.0-0.2); #Eosinphils 0.1 thou/uL (0.0-0.7); #Lymphocytes 1.9 thou/uL (1.20-3.40); #Monocytes 0.5 thou/uL (0.11-0.59); #Neutrophils 6.4 thou/uL (1.40-6.50); %Basophils 0.6 % (0.0-1.0); %Eosinophils 1.4 % (0.0-10.0); %Lymphocytes 21.3 % (21.0-51.0); %Monocytes 5.2 % (0.0-10.0); %Neutrophils 71.5 % (42.0-75.0); Hemoglobin 15.9 g/dL (14.0-18.0); Mean Corpuscular HGB CONC 35.4 g/dL (32.0-36.0); Mean Corpuscular Hemoglobin 32.9 pg (27.0-31.0); Mean Platelet Volume 9.9 fL (7.4-10.4); Platelet Count 164 10x3/uL (130-400); RBC Distribution Width 11.3 % (11.5-14.5); Red Blood Cell (RBC) Count 4.83 mill/uL (4.70-6.10); White Blood Cell (WBC) Count 8.9 10x3/uL (4.8-10.8)
[2022-09-26 19:52] LABS: ALT (SGPT) 35 U/L (8-55); AST (SGOT) 21 U/L (5-34); Albumin 4.3 g/dL (3.5-5.0); Alkaline Phosphatase 79 U/L (40-110); Anion Gap 14 mmol/L (10-20); BUN (Urea Nitrogen) 14 mg/dL (8.9-20.6); Bilirubin, Total 0.9 mg/dL (0.2-1.2); Calc. Creatinine Clearance 0 mL/min (70-130); Calcium 9.2 mg/dL (7.8-10.44); Carbon Dioxide 23 mmol/L (22-29); Chloride 102 mmol/L (98-107); Estimated GFR 101; Globulin 3.3 g/dL (2.4-3.5); Glucose 365 mg/dL (70-105); Protein, Total 7.6 g/dL (6.0-8.3); Sodium 135 mmol/L (136-145)
[2022-09-26] MEDS ORDERED: Insulin Regular 300 UNITS/3 ML VIAL ONE (21:06)
[2022-09-26 21:43] LABS: Bilirubin Negative (Negative); Blood, Urine Negative (Negative); Clarity Clear (Clear); Glucose, Urine (Dipstick) Greater than 1000 mg/dL (Negative); Ketone, Urine Negative (Negative); Leukocyte Negative Leu/uL (Negative); Nitrite Negative (Negative); Protein, Urine (Dipstick) Negative (Neg-Trace); Specific Gravity, Urine 1.045 (1.002-1.036)
== END 2022-09-26 22:28 | disposition home or self-care (01) ==
LOC: ERS 18:28
DX: E11.9 Type 2 diabetes mellitus without complications (principal); Z79.84 Long term (current) use of oral hypoglycemic drugs
CPT/HCPCS: 36415; 36416; 80053; 81003; 85025; 96374; J1815

== ENCOUNTER 2022-10-31 16:31 | Emergency (ER) | payer SELFPAY ==
[2022-10-31] MEDS ORDERED: HYDROcodone/Acetaminophen 5/325 mg Tablet ONE (17:22)
== END 2022-10-31 17:50 | disposition home or self-care (01) ==
LOC: ERS 16:31
DX: L02.31 Cutaneous abscess of buttock (principal); E11.9 Type 2 diabetes mellitus without complications; Z79.84 Long term (current) use of oral hypoglycemic drugs; Z79.82 Long term (current) use of aspirin
CPT/HCPCS: 99282

== ENCOUNTER 2023-04-04 20:58 | Emergency (ER) | payer BC ==
[2023-04-04] MEDS ORDERED: Mag-Al 1200 mg/1200 mg/30 ML UDCUP ONE (22:09)
== END 2023-04-04 23:08 | disposition home or self-care (01) ==
LOC: ERS 20:58
DX: R13.10 Dysphagia, unspecified (principal); J02.9 Acute pharyngitis, unspecified; E11.9 Type 2 diabetes mellitus without complications
CPT/HCPCS: 71046; 99284